=== PATIENT | male | born 1980 | race Caucasian/White ===

== ENCOUNTER 2023-11-25 20:38 | Emergency (ER) | payer OTHER ==
[~2023-11-25] VITALS: Ht 187.9 cm
[2023-11-25] MEDS ORDERED: FAMOTIDINE 50 ML IV ONE (21:35)
[2023-11-25] MEDS ORDERED: Metoclopramide Hydrochloride 10 MG/2 ML AMP IV ONE (21:35)
[2023-11-25] MEDS ORDERED: SODIUM CHLORIDE 0.9% 1,000 ML IV ONE (21:35)
[2023-11-25 21:45] LABS: BASO # 0.1 10*3/uL (0.0-0.1); BASO % 0.4 % (0.0-1.0); EOS # 0.1 10*3/uL (0.0-0.4); LYMPH # 2.7 10*3/uL (1.3-4.4); LYMPH % 18.4 % (27.0-41.0); MEAN CELL VOLUME 88.9 fl (80.0-94.0); MEAN CORPUSCULAR HGB 29.9 pg (27.0-31.0); MEAN CORPUSCULAR HGB CONC 33.7 g/dl (33.0-37.0); MEAN PLATELET VOLUME 10.1 fl (9.6-12.3); MONO # 1.3 10*3/uL (0.1-1.0); MONO % 8.7 % (3.0-9.0); NEUT # 10.4 10*3/uL (2.3-7.9); PLATELET COUNT AUTOMATED 255 10*3/uL (130-400); RED BLOOD COUNT 5.51 10*6/uL (4.50-5.90); RED CELL DISTRI WIDTH 12.3 % (0-14.5); WHITE BLOOD COUNT 14.7 10*3/uL (4.8-10.8)
[2023-11-25 22:05] LABS: ALKALINE PHOSPHATASE 81 U/L (46-116); BUN 11 mg/dl (9-23); CHLORIDE 100 mmol/L (98-107); LIPASE 31 U/L (12-53); POTASSIUM 4.7 mmol/L (3.4-5.1); SGPT/ALT 14 U/L (5-49); TOTAL PROTEIN 6.9 gm/dL (6.0-8.0)
[2023-11-26] MEDS ORDERED: PROTONIX20 MG PO (00:36)
== END 2023-11-26 00:48 | disposition home or self-care (01) ==
LOC: ED 20:38
PROVIDERS: Emergency Medicine
DX: K29.70 Gastritis, unspecified, without bleeding (principal); R11.10 Vomiting, unspecified; Z90.49 Acquired absence of other specified parts of digestive tract

== ENCOUNTER 2024-02-29 16:53 | Emergency (ER) | payer OTHER ==
[~2024-02-29] VITALS: Ht 187.9 cm; Wt 89.8 kg
[~2024-02-29 16:53] MED LIST: PROTONIX20 MG PO
[2024-02-29] MEDS ORDERED: VIBRAMYCIN100 MG PO (17:09)
[2024-02-29] MEDS ORDERED: CLEOCIN HCL300 MG PO (17:09)
[2024-02-29] MEDS ORDERED: CLINDAMYCIN HCL 300 MG CAPSULE PO ONE ×2 (17:10)
[2024-02-29] MEDS ORDERED: Doxycycline Hyclate 100 MG 2 TAB ED PACK PO SCH (17:10)
[2024-02-29 17:25] LABS: BASO # 0.1 10*3/uL (0.0-0.1); BASO % 0.5 % (0.0-1.0); EOS # 0.2 10*3/uL (0.0-0.4); EOS % 1.2 % (1.0-4.0); HEMATOCRIT 41.7 % (42.0-52.0); LYMPH % 14.4 % (27.0-41.0); MEAN CELL VOLUME 92.7 fl (80.0-94.0); MEAN CORPUSCULAR HGB 30.2 pg (27.0-31.0); MEAN CORPUSCULAR HGB CONC 32.6 g/dl (33.0-37.0); MEAN PLATELET VOLUME 10.3 fl (9.6-12.3); MONO # 1.4 10*3/uL (0.1-1.0); NEUT # 10.1 10*3/uL (2.3-7.9); NEUT % 73.6 % (47.0-73.0); PLATELET COUNT AUTOMATED 233 10*3/uL (130-400); RED CELL DISTRI WIDTH 13.4 % (0-14.5); WHITE BLOOD COUNT 13.8 10*3/uL (4.8-10.8)
[2024-02-29 17:45] LABS: BUN 11 mg/dl (9-23); CHLORIDE 105 mmol/L (98-107); POTASSIUM 4.3 mmol/L (3.4-5.1)
== END 2024-02-29 18:00 | disposition home or self-care (01) ==
LOC: ED 16:53
PROVIDERS: Nurse Practitioner Family
DX: L02.412 Cutaneous abscess of left axilla (principal); L02.411 Cutaneous abscess of right axilla; Z88.1 Allergy status to other antibiotic agents

== ENCOUNTER 2024-07-01 17:16 | Emergency (ER) | payer OTHER ==
[~2024-07-01] VITALS: Ht 187.9 cm; Wt 88.9 kg
[~2024-07-01 17:16] MED LIST changes: +CLEOCIN HCL300 MG PO; +VIBRAMYCIN100 MG PO
[2024-07-01 19:01] LABS: BASO % 0.4 % (0.0-1.0); EOS # 0.2 10*3/uL (0.0-0.4); EOS % 1.8 % (1.0-4.0); HEMATOCRIT 44.1 % (42.0-52.0); MEAN CELL VOLUME 91.5 fl (80.0-94.0); MEAN CORPUSCULAR HGB 29.9 pg (27.0-31.0); MEAN CORPUSCULAR HGB CONC 32.7 g/dl (33.0-37.0); MEAN PLATELET VOLUME 10.6 fl (9.6-12.3); MONO # 1.4 10*3/uL (0.1-1.0); MONO % 12.7 % (3.0-9.0); NEUT # 7.1 10*3/uL (2.3-7.9); NEUT % 65.5 % (47.0-73.0); PLATELET COUNT AUTOMATED 221 10*3/uL (130-400); RED BLOOD COUNT 4.82 10*6/uL (4.50-5.90); RED CELL DISTRI WIDTH 13.2 % (0-14.5); WHITE BLOOD COUNT 10.8 10*3/uL (4.8-10.8)
[2024-07-01 19:12] LABS: ACT PARTIAL THROMBO TIME 27.9 SECONDS (20.0-32.1)
[2024-07-01 19:27] LABS: BUN 19 mg/dl (9-23); CHLORIDE 103 mmol/L (98-107); POTASSIUM 3.9 mmol/L (3.4-5.1)
[2024-07-01] MEDS ORDERED: Doxycycline Hyclate 100 MG 2 TAB ED PACK PO SCH (21:00)
[2024-07-01] MEDS ORDERED: Amoxicillin/Clavulanate Pota 875 MG TAB PO ONE (21:00)
[2024-07-01] MEDS ORDERED: AMOX-CLAV 875-1 EACH PO (21:03)
[2024-07-01] MEDS ORDERED: VIBRAMYCIN100 MG PO (21:03)
== END 2024-07-01 22:53 | disposition home or self-care (01) ==
LOC: ED 17:16
PROVIDERS: Internal Medicine
DX: J40 Bronchitis, not specified as acute or chronic (principal); R07.89 Other chest pain; F41.9 Anxiety disorder, unspecified; F17.200 Nicotine dependence, unspecified, uncomplicated; Z88.1 Allergy status to other antibiotic agents